=== PATIENT | male | born 1945 | race Caucasian/White ===

== ENCOUNTER 2017-05-19 06:16 | Emergency (ER) | payer BC ==
--- NOTE | 2017-05-19 06:44 | ED Physician Documentation ---
PD HPI MALE - Stated complaint Stated Complaint: POST SURGERY COMPLICATIONS - History obtained from History obtained from: Patient - History of Present Illness Timing - onset: Last night Timing - duration: Hours Timing - details: Abrupt onset Associated symptoms: Unable to urinate, Cleary problem (he had urethral surgery at 1 1/2 weeks ago and was doing okay with some small clots at times. lLast night he felt he was unable to have urine out catheter and is feeling full bladder area.) PD HPI MALE CONTRIB FACTORS: Indwelling catheter (just the past 1 1/2 weeks.) Recently seen: Surgery (Urology at .) Review of Systems Constitutional: denies: Fever, Chills GI: denies: Nausea, Vomiting : reports: Frequency. denies: Hesitancy, Hematuria Skin: denies: Rash, Lesions Neurologic: denies: Near syncope, LOC PD PAST MEDICAL HISTORY - Past Medical History Cardiovascular: None Respiratory: None Neuro: None : Other (urethral stricutre repair.) - Present Medications Home Medications: Ambulatory Orders Medication Instructions Recorded Confirmed Atorvastatin [Lipitor] 1 tab PO DAILY 05/19/17 05/19/17 Sulfamethox/Trimeth 800/160 1 tab PO BID 05/19/17 05/19/17 [Bactrim Ds] - Allergies Allergies/Adverse Reactions: Allergies Allergy/AdvReac Type Severity Reaction Status Date / Time No Known Drug Allergies Allergy Verified 05/19/17 07:05 PD ED PE NORMAL - Vitals Vital signs reviewed: No - General General: Alert and oriented X 3, No acute distress, Well developed/nourished - HEENT HEENT: Pharynx benign - Cardiac Cardiac: RRR - Respiratory Respiratory: Clear bilaterally - Abdomen Abdomen: Normal bowel sounds, Soft, Non tender, No organomegaly, Other (mild to moderate fullness in suprapubic area c/w full bladder.) - Male Male : Other (catheter coming from bottom base of penile shaft. Not draining initially but does once Nurse irrigates it and gets clog of mucous and blood out of catheter. The flows well. The penile shaft with surgical wound that does not have appearance of infection.) - Rectal Rectal: Deferred Results - Vitals Vitals: Vital Signs - 24 hr 05/19/17 05/19/17 06:20 07:07 Temperature 36.5 C 36.6 C Heart Rate 82 64 Respiratory 16 16 Rate Blood Pressure 126/79 126/79 O2 Saturation 99 94 Oxygen O2 Source Room air - Labs Labs: Laboratory Tests 05/19/17 06:35 Urine Color YELLOW Urine Clarity CLEAR Urine pH 6.0 Ur Specific [place] >=1.030 H Urine Protein NEGATIVE Urine Glucose (UA) NEGATIVE Urine Ketones NEGATIVE Urine Occult Blood MODERATE H Urine Nitrite NEGATIVE Urine Bilirubin NEGATIVE Urine Urobilinogen 0.2 (NORMAL) Ur Leukocyte Esterase NEGATIVE Urine RBC 6-10 H Urine WBC 4-5 Ur Squamous Epith Cells RARE Squamous Urine Crystals 3-5 Calcium Oxalate Amorphous Sediment Few Urine Bacteria Rare Urine Casts 0-2 Course Granular Urine Mucus Few Strands Ur Microscopic Review INDICATED Urine Culture Comments NOT INDICATED Departure - Departure Disposition: 01 Home, Self Care Clinical Impression: Acute urinary retention Cleary catheter problem Qualifiers: Encounter type: initial encounter Qualified Code(s): T83.9XXA - Unspecified complication of genitourinary prosthetic device, implant and graft, initial encounter Condition: Stable Record reviewed to determine appropriate education?: Yes Instructions: ED Catheter Care Cleary Comments: The urine does not show signs of infection at this time. It seems that it was just clogged with some sediment and blood. Call your urologist later today if problems. Continue the same Cleary care you have been doing. Return if similar problems. Discharge Date/Time: 05/19/17 07:13
[2017-05-19 06:45] VITALS: BP 126/79
[2017-05-19 06:56] LABS: BILIRUBIN,URINE NEGATIVE (NEGATIVE)
[2017-05-19 06:59] LABS: UA w/ MICROSCOPIC CHARGE YES
[2017-05-19 07:31] LABS: UR CULTURE IF IND NOT INDICATED
== END 2017-05-19 07:13 | disposition home or self-care (01) ==
LOC: ED 06:16
DX: T83.9XXA Unspecified complication of genitourinary prosthetic device, implant and graft, initial encounter (principal); R33.9 Retention of urine, unspecified
CPT/HCPCS: 81001; 81003; 87086; 99283

== ENCOUNTER 2018-05-07 09:04 | Outpatient (CLI) | payer BC, MEDICARE ==
[2018-05-07 09:46] LABS: ALBUMIN 4.1 g/dL (3.2-5.5); ALBUMIN/GLOBULIN RATIO 1.6 (1.0-2.2); ALKALINE PHOSPHATASE 64 IU/L (42-121); ALT ALANINE AMINOTRANSFERASE 13 IU/L (10-60); AST ASPARTATE AMINOTRANSFERASE 18 IU/L (10-42); BILIRUBIN,TOTAL 1.3 mg/dL (0.2-1.0); BUN - BLOOD UREA NITROGEN 12 mg/dL (6-20); CALCIUM 8.8 mg/dL (8.5-10.3); CARBON DIOXIDE - CO2 28 mmol/L (21-32); CHLORIDE 103 mmol/L (101-111); CHOLESTEROL 181 mg/dL; CREATININE 0.7 mg/dL (0.6-1.2); GFR - MDRD 111 (>89); GLUCOSE 116 mg/dL (70-100); HDL CHOLESTEROL 45 mg/dL; LDL CHOLESTEROL,CALCULATED 108 mg/dL; LDL/HDL RATIO 2.4 (<3.6); SODIUM 137 mmol/L (135-145); TOTAL PROTEIN 6.6 g/dL (6.7-8.2); VLDL CHOLESTEROL 28 mg/dL
== END 2018-05-07 09:05 | disposition home or self-care (01) ==
LOC: LAB 09:04
PROVIDERS: ATTEND Internal Medicine Cardiovascular Disease
DX: E78.2 Mixed hyperlipidemia (principal)
CPT/HCPCS: 36415; 80053; 80061; 83721

== ENCOUNTER 2018-06-08 11:43 | Emergency (ER) | payer BC ==
--- NOTE | 2018-06-08 12:35 | XRAY Report ---
Reason: cough, SOB Procedure Date: 06/08/2018 Accession Number: [id number] / [id number] Procedure: XR - Chest 2 View X-Ray CPT Code: 19698 FULL RESULT: EXAM: CHEST RADIOGRAPHY EXAM DATE: 06/08/2018 12:28 PM. CLINICAL HISTORY: Cough, SOB. COMPARISON: None. TECHNIQUE: 2 views. FINDINGS: Lungs/Pleura: Hyperlucent upper lungs could be compatible with COPD. Mild hazy left basilar opacities are noted. No pleural effusion or pneumothorax. Mediastinum: Heart and mediastinal contours are unremarkable. Other: None. IMPRESSION: 1. Upper lung predominant COPD evident. 2. Mild superimposed left basilar opacities could reflect basilar pneumonia. RADIA
--- NOTE | 2018-06-08 12:43 | ED Physician Documentation ---
PD HPI URI - Stated complaint Stated Complaint: COUGH,FEVER - Chief complaint Chief Complaint: Fever - History obtained from History obtained from: Patient - History of Present Illness Timing - onset: How many weeks ago (3-4) Timing duration: Weeks (3) Timing details: Gradual onset, Still present Associated symptoms: Fever (initially), Chills, Nasal congestion, Dry cough (with coughing spasms that takes his breath away, then gasps for breath. No vomiting with coughing.) Contributing factors: Sick contact (his partner has had similar cough for 4 weeks.), Other (he has planned urethral reconstruction (urology) surgery planned for next week.). No: Travel, Immunocompromised, COPD / asthma Improves by: No: Medication (cough meds) Worsened by: Activity Similar symptoms before: Has not had sx before Recently seen: Not recently seen Review of Systems Constitutional: reports: Fever, Chills Nose: reports: Congestion Throat: denies: Sore throat Respiratory: reports: Dyspnea (with activity), Cough. denies: Wheezing GI: denies: Vomiting, Diarrhea Musculoskeletal: denies: Extremity swelling PD PAST MEDICAL HISTORY - Past Medical History Past Medical History: Yes Cardiovascular: High cholesterol Respiratory: None Neuro: None Endocrine/Autoimmune: None GI: None : Other HEENT: None Psych: None Musculoskeletal: None Derm: None - Past Surgical History Past Surgical History: Yes Ortho: Knee replacement - Present Medications Home Medications: Ambulatory Orders Medication Instructions Recorded Confirmed Atorvastatin [Lipitor] 1 tab PO DAILY 05/19/17 06/08/18 Azithromycin [Zithromax] 0 mg PO DAILY #6 tablet 06/08/18 Benzonatate [Tessalon Perle] 100 - 200 mg PO TID PRN #30 capsule 06/08/18 Dexamethasone [Decadron] 4 mg PO DAILY #5 tablet 06/08/18 - Allergies Allergies/Adverse Reactions: Allergies Allergy/AdvReac Type Severity Reaction Status Date / Time No Known Drug Allergies Allergy Verified 06/08/18 11:52 - Social History Does the pt smoke?: No Smoking Status: Former smoker Does the pt drink ETOH?: Yes ETOH Use: Liquor Does the pt have substance abuse?: No - Immunizations Immunizations are current?: No - POLST Patient has POLST: No PD ED PE NORMAL - Vitals Vital signs reviewed: Yes - General General: Alert and oriented X 3, No acute distress, Well developed/nourished - HEENT HEENT: Pharynx benign - Neck Neck: Supple, no meningeal sign, No adenopathy - Cardiac Cardiac: RRR, No murmur - Respiratory Respiratory: No respiratory distress, Clear bilaterally - Abdomen Abdomen: Soft, Non tender - Derm Derm: Normal color, Warm and dry - Extremities Extremities: No edema, No calf tenderness / cord - Neuro Neuro: Alert and oriented X 3, No motor deficit, Normal speech Results - Vitals Vitals: Vital Signs - 24 hr 06/08/18 06/08/18 06/08/18 11:48 11:52 12:08 Temperature 36.3 C L 36.5 C 36.8 C Heart Rate 82 76 76 Respiratory 18 18 18 Rate Blood Pressure 116/71 103/80 103/76 O2 Saturation 98 96 96 06/08/18 13:45 Temperature Heart Rate 68 Respiratory 18 Rate Blood Pressure 112/76 O2 Saturation 96 Oxygen O2 Source Room air - Rads (name of study) chest xray Radiology: Prelim report reviewed (some haziness bibasilar, consider early infiltrate.) PD MEDICAL DECISION MAKING - ED course Complexity details: reviewed results, considered differential (sounds almost pertussis-like and prolonged cough for 3 weeks, will treat for possible bacterial. ), d/w patient Departure - Departure Disposition: 01 Home, Self Care Clinical Impression: Persistent cough for 3 weeks or longer Acute bronchitis Qualifiers: Bronchitis organism: unspecified organism Qualified Code(s): J20.9 - Acute bronchitis, unspecified Condition: Stable Record reviewed to determine appropriate education?: Yes Instructions: ED Upper Resp Infec Abx Tx Follow-Up: Kike Potter MD [Primary Care Provider] - Prescriptions: Azithromycin [Zithromax] 0 mg PO DAILY #6 tablet Benzonatate [Tessalon Perle] 100 - 200 mg PO TID PRN #30 capsule PRN Reason: Cough Dexamethasone [Decadron] 4 mg PO DAILY #5 tablet Comments: Your chest x-ray does not show any obvious pneumonia. There is some slight haziness in the lower lung that could suggest some of the phlegm is down into the lung and not just coughing up. Given the persistence of it and the character of the cough I would suggest treating with antibiotic azithromycin and a steroid Decadron for the inflammation both for 5 days. Add Tessalon if needed for cough. Honey works well to. Drink lots of fluids. This course of treatment would cover potential bacterial causes and should then allow for your surgery next week I presume without hesitation even if you are still having some cough. Discharge Date/Time: 06/08/18 13:46
[2018-06-08 13:46] VITALS: BP 112/76
== END 2018-06-08 13:46 | disposition home or self-care (01) ==
LOC: ED 11:43
DX: J20.9 Acute bronchitis, unspecified (principal); Z87.891 Personal history of nicotine dependence
CPT/HCPCS: 71046; 99283

== ENCOUNTER 2018-06-12 17:23 | Emergency (ER) | payer BC ==
[2018-06-12 17:28] VITALS: BP 128/87
--- NOTE | 2018-06-12 17:42 | ED Physician Documentation ---
PD HPI ABD PAIN - Stated complaint Stated Complaint: SWELLING LOW RT ABD - Chief complaint Chief Complaint: Abd Pain - History obtained from History obtained from: Patient - History of Present Illness Timing - onset: Other (He had a cough for several weeks, somewhat better after some meds that were given here last week. He is noted for the last few days an increasing bulge in the right inguinal area that he is able to push back in but is not significantly painful. He has an upcoming urologic surgery at the [facility] this coming week.) Review of Systems Constitutional: reports: Reviewed and negative. denies: Fever, Chills Cardiac: reports: Reviewed and negative Respiratory: reports: Cough. denies: Dyspnea PD PAST MEDICAL HISTORY - Past Medical History Past Medical History: Yes Cardiovascular: High cholesterol Respiratory: None Neuro: None Endocrine/Autoimmune: None GI: None : Other HEENT: None Psych: None Musculoskeletal: None Derm: None Other Past Medical History: inguinal hernia - Past Surgical History Past Surgical History: Yes Ortho: Knee replacement - Present Medications Home Medications: Ambulatory Orders Medication Instructions Recorded Confirmed No Known Home Medications 06/12/18 06/12/18 - Allergies Allergies/Adverse Reactions: Allergies Allergy/AdvReac Type Severity Reaction Status Date / Time No Known Drug Allergies Allergy Verified 06/12/18 17:28 - Social History Does the pt smoke?: No Smoking Status: Never smoker Does the pt drink ETOH?: Yes Does the pt have substance abuse?: No - Immunizations Immunizations are current?: No - POLST Patient has POLST: No PD ED PE NORMAL - Vitals Vital signs reviewed: Yes - General General: Alert and oriented X 3, No acute distress - Abdomen Abdomen: Normal bowel sounds, Soft, Non tender - Male Male : Other (There is a large but easily reducible right inguinal hernia without tenderness or skin changes.) - Derm Derm: Normal color, Warm and dry - Neuro Neuro: Alert and oriented X 3, Normal speech Results - Vitals Vitals: Vital Signs - 24 hr 06/12/18 17:25 Temperature 36.0 C L Heart Rate 63 Respiratory 20 Rate Blood Pressure 128/87 H O2 Saturation 98 Oxygen O2 Source Room air Departure - Departure Disposition: 01 Home, Self Care Clinical Impression: Right inguinal hernia Condition: Good Record reviewed to determine appropriate education?: Yes Instructions: ED Hernia Inguinal Follow-Up: Edgar Champion MD [Provider Admit Priv/Credential] - (for the hernia) Comments: Call your urologic surgeon on Thursday to let him know about the hernia and the ongoing cough. I do not think this will cause your surgery to be rescheduled but I might be surprised. You should also follow-up with a general surgeon regarding the hernia itself.
== END 2018-06-12 17:47 | disposition home or self-care (01) ==
LOC: ED 17:23
DX: K40.90 Unilateral inguinal hernia, without obstruction or gangrene, not specified as recurrent (principal)
CPT/HCPCS: 99282; 99283

== ENCOUNTER 2018-07-07 15:41 | Outpatient (CLI) | payer BC ==
[2018-07-07 16:02] LABS: BILIRUBIN,URINE NEGATIVE (NEGATIVE); GLUCOSE, URINE (UA) NEGATIVE (NEGATIVE); KETONES,URINE (UA) NEGATIVE (NEGATIVE); LEUKOCYTE ESTERASE, URINE SMALL (NEGATIVE); NITRITE,URINE NEGATIVE (NEGATIVE); OCCULT BLOOD,URINE NEGATIVE (NEGATIVE); PH,URINE 5.5 PH (5.0-7.5); PROTEIN,URINE NEGATIVE (NEGATIVE); UROBILINOGEN,URINE 1 (NORMAL) E.U./dL (NORMAL)
[2018-07-07 16:03] LABS: CLARITY,URINE HAZY (CLEAR)
[2018-07-07 16:11] LABS: BACTERIA,URINE Moderate /HPF (None Seen); RBC,URINE None Seen /HPF (0-5); SQUAMOUS EPITHELIAL CELL,UR MOD Squamous (<= Few)
== END 2018-07-07 15:42 | disposition home or self-care (01) ==
LOC: LAB 15:41
PROVIDERS: ATTEND Urology
DX: Z87.448 Personal history of other diseases of urinary system (principal); N52.9 Male erectile dysfunction, unspecified
CPT/HCPCS: 81001; 87086; 87205

== ENCOUNTER 2019-04-25 15:40 | Outpatient (CLI) | payer BC ==
[2019-04-25 16:38] LABS: BILIRUBIN,URINE NEGATIVE (NEGATIVE); GLUCOSE, URINE (UA) NEGATIVE (NEGATIVE); KETONES,URINE (UA) NEGATIVE (NEGATIVE); LEUKOCYTE ESTERASE, URINE SMALL (NEGATIVE); NITRITE,URINE NEGATIVE (NEGATIVE); OCCULT BLOOD,URINE LARGE (NEGATIVE); PROTEIN,URINE 100 mg/dL (NEGATIVE); UROBILINOGEN,URINE 1 (NORMAL) E.U./dL (NORMAL)
[2019-04-25 16:40] LABS: CLARITY,URINE HAZY (CLEAR)
[2019-04-25 16:48] LABS: BACTERIA,URINE Many /HPF (None Seen); RBC,URINE TNTC /HPF (0-5); SQUAMOUS EPITHELIAL CELL,UR RARE Squamous (<= Few)
== END 2019-04-25 15:41 | disposition home or self-care (01) ==
LOC: LAB 15:40
PROVIDERS: ATTEND Internal Medicine
DX: E53.8 Deficiency of other specified B group vitamins (principal); R97.20 Elevated prostate specific antigen [PSA]; N39.0 Urinary tract infection, site not specified; R31.9 Hematuria, unspecified
CPT/HCPCS: 36415; 81001; 81003; 82607; 84153; 87077; 87086; 87181

== ENCOUNTER 2019-10-06 15:02 | Outpatient (CLI) | payer BC | END 2019-10-06 23:59 | disposition critical access hospital (66) | LOC: EMS 15:02 | PROVIDERS: ATTEND Surgery | DX: S61.311A Laceration without foreign body of left index finger with damage to nail, initial encounter (principal); S61.313A Laceration without foreign body of left middle finger with damage to nail, initial encounter; W31.2XXA Contact with powered woodworking and forming machines, initial encounter; Y92.009 Unspecified place in unspecified non-institutional (private) residence as the place of occurrence of the external cause | CPT/HCPCS: A0425; A0429 ==

== ENCOUNTER 2019-10-06 15:17 | Emergency (ER) | payer BC, MEDICARE ==
[2019-10-06] MEDS ORDERED: TETANUS/DIPHTHERIA TOXOID 0.5 ML SYRINGE IM ONE (15:25)
[2019-10-06] MEDS ORDERED: MORPHINE 2 MG/ML CARPUJECT IVP STA ×2 (15:27→16:39)
[2019-10-06] MEDS ORDERED: cefTRIAXone 1 GM in SODIUM CHLORIDE 0.9% MINIBAG 100 ML IV STA (15:27)
--- NOTE | 2019-10-06 15:34 | ED Physician Documentation ---
PD HPI SKIN - Stated complaint Stated Complaint: CUT FINGERS - Chief complaint Chief Complaint: Laceration - History obtained from History obtained from: Patient (74 yo M w/ hxo newly diagnosed lung ca presents via EMS after he accidentally cut the tips of the left 2-3rd digits with a table saw. 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 No other injuries. Bleeding controlled w/ gauze dressing captain's assistant. Pt reporting throbbing pain but "it's not that bad.") Review of Systems Constitutional: reports: Reviewed and negative Cardiac: reports: Reviewed and negative Respiratory: reports: Reviewed and negative GI: reports: Reviewed and negative Skin: reports: Laceration (s) Musculoskeletal: reports: Extremity pain PD PAST MEDICAL HISTORY - Past Medical History Cardiovascular: High cholesterol Respiratory: None Neuro: None Endocrine/Autoimmune: None GI: None : Retention, Other HEENT: Chronic vision loss Psych: None Musculoskeletal: None Derm: None Other Past Medical History: lung cancer, Dx 10/05/2019 - Past Surgical History Past Surgical History: Yes Ortho: Knee replacement HEENT: Cataracts - Present Medications Home Medications: Ambulatory Orders Medication Instructions Recorded Confirmed Cephalexin [Keflex] 500 mg PO Q6H #28 capsule 10/06/19 Oxycodone HCl/Acetaminophen 1 - 2 each PO Q6H PRN #14 tablet 10/06/19 [Percocet 5-325 mg Tablet] - Allergies Allergies/Adverse Reactions: Allergies Allergy/AdvReac Type Severity Reaction Status Date / Time No Known Drug Allergies Allergy Verified 10/06/19 15:21 - Social History Does the pt smoke?: No Smoking Status: Former smoker Does the pt drink ETOH?: Yes Does the pt have substance abuse?: No - Immunizations Immunizations are current?: No Immunizations: TDAP >10years/unknown - POLST Patient has POLST: No PD ED PE NORMAL - Vitals Vital signs reviewed: Yes - General General: Alert and oriented X 3, No acute distress, Well developed/nourished - HEENT HEENT: Atraumatic, Moist mucous membranes - Cardiac Cardiac: RRR, No murmur, No gallop, No rub - Respiratory Respiratory: No respiratory distress, Clear bilaterally - Abdomen Abdomen: Normal bowel sounds, Soft, Non tender, Non distended - Derm Derm: Normal color, Warm and dry, No rash, Other (Pt with partial avulsion of the tips of his left 2nd and 3rd digit. The nail and nail bed is completely avulsed on the 3rd digit and partially avulsed on the 2nd digit. Bleeding controlled. Bone palpable through wound in both fingers. Normal sensation of l eft fingers/hand, normal flex/ex. ) - Extremities Extremities: Other (see skin exam: partial amputation of the left 2nd and 3rd digits) Results - Vitals Vitals: Vital Signs - 24 hr 10/06/19 10/06/19 15:22 16:45 Temperature 35.8 C L 37.1 C Heart Rate 69 63 Respiratory 16 16 Rate Blood Pressure 142/81 H 127/90 H O2 Saturation 96 100 Oxygen O2 Source Room air - Labs Labs: Laboratory Tests 10/06/19 10/06/19 15:39 15:39 WBC 5.5 RBC 4.37 L Hgb 13.7 L Hct 41.0 L MCV 93.8 MCH 31.4 H MCHC 33.4 RDW 12.3 Plt Count 219 MPV 9.1 Neut # (Auto) 3.5 Lymph # (Auto) 1.4 L [place] # (Auto) 0.5 Eos # (Auto) 0.1 Baso # (Auto) 0.1 Absolute Nucleated RBC 0.00 Nucleated RBC % 0.0 Sodium 137 Potassium 3.5 Chloride 105 Carbon Dioxide 22 Anion Gap 10.0 BUN 14 Creatinine 0.7 Estimated GFR (MDRD) 111 Glucose 87 Calcium 8.4 L PD MEDICAL DECISION MAKING - ED course Complexity details: reviewed results, re-evaluated patient, considered differential, d/w patient, d/w information resource consultant (Ortho), other (ED attending) ED course: Pt presented w/ partial amputation of the tips of the left 2nd and 3rd digits involving loss of the nail bed in both fingers. Bleeding controlled upon arrival. After informed verbal consent obtained, a digital block was performed in each digit and the wounds were irrigated copiously with normal saline and hibiclens. There was no tissue available to suture and d/w pt that wounds would heal by secondary intention. Xeroform dressing followed by gauze applied to the wound and then covered with a metal splint for each finger. The patient received Ceftriaxone and a td in the ER and will be sent home on Keflex. I spoke with Ortho on-call and plan for follow up in clinic next week for open tuft fractures and partial amputations of both the left 2nd and 3rd digits. I reviewed this case with ED attending Dr. Mcdonald. The patient was advised to return to the ER if he had fever, chills or flu like sx or increased swelling, drainage, or pain in the digits or otherwise feeling worse. Pt received pain control in the ED and will be sent home on Vicodin, side effects/precautions discussed. Departure - Departure Disposition: 01 Home, Self Care Clinical Impression: Closed fracture of tuft of distal phalanx of finger Fingernail avulsion, complete Qualifiers: Encounter type: initial encounter Qualified Code(s): S61.309A - Unspecified open wound of unspecified finger with damage to nail, initial encounter Condition: Good Instructions: ED Fx Finger Open, ED Wound Care Follow-Up: [facility] [Provider Group] Prescriptions: Cephalexin [Keflex] 500 mg PO Q6H #28 capsule Oxycodone HCl/Acetaminophen [Percocet 5-325 mg Tablet] 1 - 2 each PO Q6H PRN #14 tablet PRN Reason: pain Comments: Please keep dressing clean and dry. If it gets soiled, see your primary doctor or return to the ER for dressing change. Keep hand elevated whenever possible to reduce pain and swelling. Please take antibiotics as prescribed. If you develop a fever, increased swelling or redness around the wound site, or purulent dr marcos, or otherwise feel your wound is worsening, return to the ER. I have provided you a prescription for Vicodin which is a narcotic pain medication. You may try ibuprofen first and if this does not relieve your pain you make take the Vicodin. The Vicodin can cause confusion or drowsiness. You should not take this medication if you are going to drive. I have spoken with the orthopedic surgeon at [facility] and they will see you for follow up next week. Please call to schedule an appointment at [phone]. Discharge Date/Time: 10/06/19 16:57
[2019-10-06 15:46] LABS: BASOPHILS # (AUTO) 0.1 10^3/uL (0.0-0.1); BASOPHILS % (AUTO) 0.9 %; EOSINOPHILS # (AUTO) 0.1 10^3/uL (0.0-0.7); EOSINOPHILS % (AUTO) 1.3 %; HGB - HEMOGLOBIN 13.7 g/dL (14.0-18.0); LYMPHOCYTES # (AUTO) 1.4 10^3/uL (1.5-3.5); LYMPHOCYTES % (AUTO) 24.8 %; MEAN CORPUSCULAR HEMOGLOBIN 31.4 pg (27.0-31.0); MEAN CORPUSCULAR HGB CONC 33.4 g/dL (32.0-36.0); MEAN CORPUSCULAR VOLUME 93.8 fL (80.0-94.0); MEAN PLATELET VOLUME 9.1 fL (7.4-11.4); MONOCYTES # (AUTO) 0.5 10^3/uL (0.0-1.0); MONOCYTES % (AUTO) 9.6 %; NEUTROPHILS # (AUTO) 3.5 10^3/uL (1.5-6.6); NEUTROPHILS % (AUTO) 62.9 %; PLT - PLATELET COUNT 219 10^3/uL (130-450); RED BLOOD COUNT 4.37 10^6/uL (4.70-6.10); RED CELL DISTRIBUTION WIDTH 12.3 % (12.0-15.0); WHITE BLOOD COUNT 5.5 x10^3/uL (4.8-10.8)
[2019-10-06] MEDS ORDERED: LIDOCAINE 1% 2 ML VIAL SUBQ STA (15:47)
--- NOTE | 2019-10-06 15:55 | XRAY Report ---
Reason: saw injury tips of left index and middle finger. Procedure Date: 10/06/2019 Accession Number: [id number] / [id number] Procedure: XR - Hand 2 View LT CPT Code: Final Report FULL RESULT: EXAM: LEFT HAND RADIOGRAPHY EXAM DATE: 10/06/2019 03:44 PM. CLINICAL HISTORY: Saw injury tips of left index and middle finger. COMPARISON: None. TECHNIQUE: 2 views. FINDINGS: Bones: There are compound comminuted fractures of the kelly of the distal phalanges of the second and third digits with overlying soft tissue defects. Joints: Normal. No subluxations. Soft Tissues: Normal. No soft tissue swelling. IMPRESSION: Compound comminuted fractures of the kelly of the distal phalanges of the second and third digits. RADIA
[2019-10-06 16:01] LABS: CALCIUM 8.4 mg/dL (8.5-10.3); CREATININE 0.7 mg/dL (0.6-1.2)
[2019-10-06 16:47] VITALS: BP 127/90
== END 2019-10-06 16:57 | disposition home or self-care (01) ==
LOC: ED 15:17
DX: S62.631B Displaced fracture of distal phalanx of left index finger, initial encounter for open fracture (principal); S62.633B Displaced fracture of distal phalanx of left middle finger, initial encounter for open fracture; W29.8XXA Contact with other powered hand tools and household machinery, initial encounter; Z87.891 Personal history of nicotine dependence
CPT/HCPCS: 36415; 80048; 85025; 90471; 96365; 96375; 96376; 99284

== ENCOUNTER 2020-11-18 09:57 | Emergency (ER) | payer BC, MEDICARE ==
[2020-11-18] MEDS ORDERED: oxyCODONE 5 MG TABLET PO STA (10:18)
--- NOTE | 2020-11-18 10:26 | ED Physician Documentation ---
History of Present Illness - Stated complaint Stated Complaint: BACK PX - Chief complaint Chief Complaint: Abd Pain - History obtained from History obtained from: Patient - History of Present Illness Timing: How many days ago (3) Pain level max: 9 Pain level now: 5 - Additonal information Additional information: Patient is a 75-year-old male who presents to the emergency department after a trip and fall 3 days ago while he was walking his dog near the [facility]. He states he fell onto the ground and kind of rolled forward. Initially had mild pain but is gradually worsened over the past 3 days. 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 Known T12 fracture. Has a lytic lesion in the pedicle of T11. He was on chemotherapy for the lung cancer, but this had to be stopped because it worsened his interstitial pulmonary fibrosis. Patient has had no numbness or tingling. No loss of bowel or bladder control. Worse with movement, better with rest. No significant head injury. No headache. Taking Advil at home without relief. Review of Systems Constitutional: denies: Fever, Chills GI: denies: Vomiting, Diarrhea : denies: Dysuria, Frequency, Hesitancy, Unable to Void, Incontinent, Hematuria Skin: denies: Rash PD PAST MEDICAL HISTORY - Past Medical History Past Medical History: Yes Cardiovascular: High cholesterol Respiratory: None Neuro: None Endocrine/Autoimmune: None GI: None : Retention, Other HEENT: Chronic vision loss Psych: None Musculoskeletal: None Derm: None - Past Surgical History Past Surgical History: Yes Ortho: Knee replacement HEENT: Cataracts - Present Medications Home Medications: Ambulatory Orders Medication Instructions Recorded Confirmed Magnesium Citrate 296 ml PO ONCE PRN #296 ml 11/18/20 Oxycodone HCl/Acetaminophen 1 each PO Q6H PRN #14 tablet 11/18/20 [Percocet 5-325 mg Tablet] Rosuvastatin Calcium [Ezallor 1 tab PO DAILY 11/18/20 11/18/20 Sprinkle] methocarbamoL [Robaxin] 500 mg PO Q6H PRN #20 tablet 11/18/20 mycophenolate mofetiL 500 mg PO BID 11/18/20 11/18/20 [Mycophenolate Mofetil] predniSONE [Deltasone] 1 tab PO DAILY 11/18/20 11/18/20 - Allergies Allergies/Adverse Reactions: Allergies Allergy/AdvReac Type Severity Reaction Status Date / Time No Known Drug Allergies Allergy Verified 11/18/20 10:09 - Social History Does the pt smoke?: No Smoking Status: Former smoker Does the pt drink ETOH?: Yes Does the pt have substance abuse?: No - Immunizations Immunizations are current?: No Immunizations: TDAP >10years/unknown - POLST Patient has POLST: No PD ED PE NORMAL - Vitals Vital signs reviewed: Yes - General General: Alert and oriented X 3, No acute distress, Well developed/nourished - HEENT HEENT: Atraumatic, PERRL, Moist mucous membranes - Neck Neck: Supple, no meningeal sign, No bony TTP - Cardiac Cardiac: RRR, Strong equal pulses - Respiratory Respiratory: No respiratory distress, Clear bilaterally - Abdomen Abdomen: Soft, Non tender, Non distended - Back Back: No spinal TTP, Other (No tenderness over the thoracic spine to palpation or percussion. There is mild tenderness around L3-L4, no step-off or deformity. Paraspinal spasm present bilaterally. Neurovascularly intact.) - Derm Derm: Warm and dry - Extremities Extremities: No edema, No calf tenderness / cord - Neuro Neuro: Alert and oriented X 3, No motor deficit, No sensory deficit, Other (No rmal bilateral lower extremity patellar and ankle jerk reflexes. Normal great toe extension bilaterally. no saddle anesthesia) - Psych Psych: Normal mood, Normal affect Results - Vitals Vitals: Vital Signs - 24 hr 11/18/20 11/18/20 10:04 11:43 Temperature 36.8 C 36.6 C Heart Rate 86 77 Respiratory 16 18 Rate Blood Pressure 136/87 H 113/74 O2 Saturation 96 96 Oxygen O2 Source Room air - Rads (name of study) L spine CT Radiology: Prelim report reviewed, EMP read contemporaneously, See rad report PD MEDICAL DECISION MAKING - ED course Complexity details: reviewed results, re-evaluated patient, considered differential, d/w patient, d/w family ED course: Patient with back pain after fall 3 days ago. Had possible L5 inferior endplate mild impaction fracture. No other acute fractures. We will place on pain medication for home and have him follow-up with his PCP for further care. Ambulating and moving quite well in the emergency department. No evidence of cauda equina, epidural abscess. I am prescribing a short course of short-acting opioid pain medication for this patient. I have reviewed the patients [employer] and no concerning findings were noted. I have discussed that the opioids are for short term therapy only, and will not be refilled from the ED. patient counseled regarding signs and symptoms for which I believe and urgent re-evaluation would be necessary. Patient with good understanding of and agreement to plan and is comfortable going home at this time This document was made in part using voice recognition software. While efforts are made to proofread this document, sound alike and grammatical errors may occur. IMPRESSION: Chronicity of the compression fractures discussed above is uncertain. L5 inferior endplate mild impaction fracture may represent an acute abnormality but no comparison studies are available that include these areas of concern to establish chronicity. A definite osteolytic process involves the right side vertebral body of T11, with ostial lysis measuring up to 2.7 cm in diameter. Minimal vertebral height reduction at this vertebral body, perhaps not related to the presumed metastatic disease involving that site. The T12 compression fracture is near severe, near vertebra plana. Mild secondary kyphosis. Conventional degenerative change at the facet joints and disc disease at L5-S1 allows anterolisthesis grade 1 of L5 on S1. Departure - Departure Disposition: 01 Home, Self Care Clinical Impression: Back muscle spasm Constipation Qualifiers: Constipation type: unspecified constipation type Qualified Code(s): K59.00 - Constipation, unspecified Condition: Good Instructions: ED Spasm Back No Trauma Follow-Up: DEVORAH ALCANTAR MD [Physician No Access] - Prescriptions: Magnesium Citrate 296 ml PO ONCE PRN #296 ml PRN Reason: Constipation Oxycodone HCl/Acetaminophen [Percocet 5-325 mg Tablet] 1 each PO Q6H PRN #14 tablet PRN Reason: pain methocarbamoL [Robaxin] 500 mg PO Q6H PRN #20 tablet PRN Reason: muscle spasm Comments: Your CT may show a new L5 inferior endplate fracture. Return if you worsen. F ollow up with your doctor for further care. I am prescribing a short course of narcotic pain medication for you. These are potentially dangerous and addictive medications that should be used carefully. These medications may constipate you. Take an qvpl-mub-stccmzo stool softener (docusate) twice daily with plenty of water while taking these medications. If you go 24 hours without a bowel movement, take [id number] miralax, per package instructions. Do not drink or drive while taking these medications. If you received narcotic or sedating medications while in the emergency department, do not drive for 24 hours. Store this medication in a safe, secure place and out of reach of children. It is a violation of federal law to give or sell this medication to another person or to use in a manner other than prescribed. The ED will not refill narcotic prescriptions, including prescriptions lost or stolen. To dispose of unwanted medications: 1. [facility] at [address] in [place] has a medication drop box. They accept prescription medications (in pill form) Thursday through Thursday 9:00 a.m. to 5:00 p.m. 2. The [facility] [employer] accepts prescription medications (in pill form only) for disposal year round. Call for more information. 3. Contact the [facility] for the next [facility] sponsored prescription drug collection event. , [phone], or [phone];
--- NOTE | 2020-11-18 11:09 | CT Report ---
PROCEDURE: LUMBAR SPINE WO INDICATIONS: lung ca, mets to spine, fall, known t12 fx, pain TECHNIQUE: Noncontrast 3 mm thick sections acquired from the T12 level to the sacrum. Sagittal and coronal refo rmats were constructed. For radiation dose reduction, the following was used: automated exposure co ntrol, adjustment of mA and/or kV according to patient size. COMPARISON: None. FINDINGS: Image quality: Excellent. Bones: There is normal bony alignment except for slight kyphosis associated with compression fractur es at T11 and T12. The T12 compression fracture is near vertebral plana, and this results in mild foc al kyphosis centered at T11-T12. There also is what appears to be potentially a acute inferior verteb ral body compression fractures. No suspicious blastic bony lesions. Central spinal caliber is of no rmal overall caliber. No pars defects. There is a lytic bone lesion involving the vertebral body marrow space of T11, centered to the right of midline and extending into the base of the right pedicle, with the osteolytic defect measuring up to 2.7 cm. A definite ostial lysis involving the vertebral plana compression fracture of T12 is not f ound. More inferiorly while there is degenerative change no definite abnormal ostial lysis is seen. D egenerative change allows grade 1 anterolisthesis of L5 on S1. Soft tissues: No retroperitoneal masses or hematomas. Visualized aorta is normal in caliber. Sever e chronic fibrotic changes seen within the small portion of the lung bases included on this study. IMPRESSION: Chronicity of the compression fractures discussed above is uncertain. L5 inferior endplate mild impac tion fracture may represent an acute abnormality but no comparison studies are available that include these areas of concern to establish chronicity. A definite osteolytic process involves the right side vertebral body of T11, with ostial lysis measur ing up to 2.7 cm in diameter. Minimal vertebral height reduction at this vertebral body, perhaps not related to the presumed metastatic disease involving that site. The T12 compression fracture is near severe, near vertebra plana. Mild secondary kyphosis. Conventional degenerative change at the facet joints and disc disease at L5-S1 allows anterolisthesis grade 1 of L5 on S1. Reviewed by: Satish Riley MD on 11/18/2020 11:08 AM PDT Approved by: Satish Riley MD on 11/18/2020 11:08 AM PDT Station ID: [id number]
[2020-11-18 11:44] VITALS: BP 113/74
== END 2020-11-18 12:12 | disposition home or self-care (01) ==
LOC: ED 09:57
DX: S32.059A Unspecified fracture of fifth lumbar vertebra, initial encounter for closed fracture (principal); W01.0XXA Fall on same level from slipping, tripping and stumbling without subsequent striking against object, initial encounter; Y93.K1 Activity, walking an animal; Y92.89 Other specified places as the place of occurrence of the external cause; M62.830 Muscle spasm of back; K59.00 Constipation, unspecified; C34.90 Malignant neoplasm of unspecified part of unspecified bronchus or lung; C79.51 Secondary malignant neoplasm of bone; M48.54XA Collapsed vertebra, not elsewhere classified, thoracic region, initial encounter for fracture; J84.10 Pulmonary fibrosis, unspecified; Z87.891 Personal history of nicotine dependence
CPT/HCPCS: 72131; 99284; A9270

== ENCOUNTER 2021-07-30 18:23 | Outpatient (CLI) | payer BC | END 2021-07-30 18:24 | disposition E | LOC: EMS 18:23 ==